=== PATIENT | male | born 1980 | race African-American/Black ===

== ENCOUNTER 2022-02-01 09:30 | Emergency (ER) | payer SELFPAY ==
[2022-02-01 09:38] VITALS: BP 131/77
[2022-02-01] MEDS ORDERED: PROPARACAINE 0.5% OPHTH DROPS 15 ML EACHEYE STA (10:05)
[2022-02-01] MEDS ORDERED: ERYTHROMYCIN OPHTH OINT 1 GM TUBE RIGHTEYE STA (11:43)
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
== END 2022-02-01 12:05 | disposition home or self-care (01) ==
LOC: ED 09:30
DX: H10.9 Unspecified conjunctivitis (principal)
CPT/HCPCS: 99282; 99284; J3490